=== PATIENT | female | born 1995 | race Caucasian/White ===

== ENCOUNTER 2019-12-28 14:33 | Emergency (ER) | payer OTHER ==
[~2019-12-28] VITALS: Ht 165.1 cm; Wt 68.0 kg
[~2019-12-28 14:33] MED LIST: CIPRO500 MG PO; CIPROFLOXACIN500 M1 PO; ELMIRON 100 MG100 M1 PO; HYDROCODON-ACE1 EAC7 PO; HYDROCODONE-AP1 EAC6 PO; IBUPROFEN 800800 M1 PO; IMITREX 25 MG T25 M1 PO; TRAMADOL 50 MG50 MG PO; TRINATE TABLET1 TAB PO; ZOLOFT25 MG PO
[2019-12-28 15:07] LABS: URINE BILIRUBIN NEGATIVE (Negative); URINE BLOOD 1+ (Negative); URINE CLARITY CLEAR; URINE COLOR YELLOW; URINE GLUCOSE-RANDOM NEGATIVE (Negative); URINE KETONES NEGATIVE (Negative); URINE LEUKOCYTES-REFLEX 1+ (Negative); URINE NITRITE-REFLEX POSITIVE (Negative); URINE PROTEIN NEGATIVE (Negative); URINE UROBILINOGEN 0.2 E.U./dl (0.2-1.0)
[2019-12-28 15:14] LABS: BACTERIA-REFLEX >30 Many /HPF (None Seen); SQUAMOUS 4-10 Moderate /LPF (0-3); URINE RBC 3-10 Few /HPF (0-2); URINE WBC-REFLEX >25 Many /HPF (0-5)
[2019-12-28 15:15] LABS: CASTS None Seen /LPF (None Seen); CRYSTALS None Seen /LPF (None Seen); MUCUS 4-6 Moderate strn/LPF (None Seen); WBC CLUMPS Moderate (None Seen)
[2019-12-28] MEDS ORDERED: NORCO 5-325 TA1 EAC2 PO (16:25)
[2019-12-28] MEDS ORDERED: KEFLEX500 M1 PO (16:25)
[2019-12-28] MEDS ORDERED: FLEXERIL PO (16:25)
[2019-12-28 16:36] VITALS: BP 137/85
== END 2019-12-28 16:38 | disposition home or self-care (01) ==
LOC: M.ERS 14:33
PROVIDERS: Nurse Practitioner Family
DX: M54.31 Sciatica, right side (principal); N39.0 Urinary tract infection, site not specified; K50.90 Crohn's disease, unspecified, without complications; Z88.5 Allergy status to narcotic agent; Z91.040 Latex allergy status; Z90.89 Acquired absence of other organs

== ENCOUNTER 2020-11-06 12:14 | Emergency (ER) | payer OTHER ==
[~2020-11-06] VITALS: Ht 170.2 cm; Wt 90.7 kg
--- NOTE | ~2020-11-06 | EMS ---
[address] [address] EMS Patient Care Report Name: ANN RUIZ [id number] Admission: 11/06/20 Attend Phys: Discharge: Date of : [birth year] Report #: [id number] THIS REPORT FOR: //name// Report Transmitted: 11/06/2020 12:07 EMS Care Summary [facility] Incident [id number] @ 11/06/2020 11:34 Incident Location [address] [place] [address] Patient ANN JULES Female, 25 Years 1995 Patient Address [address] [place] [address] Patient History None Reported, Patient Allergies Codeine, Patient Medications None Reported, Chief Complaint Lower Right Abdominal PAin Disposition Transported No Lights/[place] Dispatch Reason Abdominal Pain/Problems Transported To [facility] Narrative Med 1 & Utility 1 was dispatched for a [age] year old female c/o lower right sided abdominal pain that began two hours earlier. Upon arrival, patient met us at the door and she stepped out onto the front porch chair so we could assess her. Patient reports that the pain began two hours [place] [address] EMS Patient Care Report Name: ANN RUIZ Room: [facility]#: [id number] Admission: 11/06/20 Attend Phys: Discharge: Date of : [birth year] Report #: [id number] from sleeping. It is non radiating and is tender upon palpation. She began having nausea and vomiting about a half hour later. Patient states that her last menstrual cycle was three weeks ago and there is no chance that she could be . Patient's vitals were obtained. Patient was assisted to the stretcher and secured via seatbelts and patient was moved to the ambulance without incident. In the ambulance, patient was placed on the aircraft engine installer. It shown Normal Sinus Rhythm. Saline lock was established with a 20 GA IV catheter. Blood glucose was obtained with a result of 93mg/dL. Med 1 went enroute [address] [facility]. Patient rated her pain a 10/10 pain. Patient's vitals were monitored throughout transport. Hospital report was given via radio with no questions or orders received or requested. Med 1 arrived at the hospital . Patient was moved into the ER via stretcher without incident to room 5. Patient care was transferred to ER staff. Med 1 returned back into service. [id number] KShook Initial Vitals @11:52P: 72,R: 20,BP: 100/58,Pain: 10/10,GCS: 15,SpO2: 98,Revised Trauma: 12, @12:03P: 67,R: 18,BP: 104/70,Pain: 10/10,GCS: 15,Glucose: 93,SpO2: 98,Revised Trauma: 12, Assessments @11:40MENTAL:No Abnormalities,SKIN:No Abnormalities,HEENT:Head/Face: No Abnormalities,Eyes: No Abnormalities,Neck/Airway: No Abnormalities,LUNG SOUNDS:General: Vomiting,General: Nausea,Right Lower: Tenderness,Right Upper: No Abnormalities,Left Lower: No Abnormalities,ABDOMEN:General: Vomiting,General: Nausea,Right Lower: Tenderness,Right Upper: No Abnormalities,Left Lower: No Abnormalities,PELVIS//GI:EXTREMITIES:PULSE:NEURO: Impression Abdominal Pain Procedures @11:46Saline Lock 10cc (20 ga) Site: Hand-RightResponse: UnchangedSucceeded@11:47Ondansetron - 4 Milligrams (mg) - Intravenous (IV)Response: Improved Timeline 11:34,[place] [address] EMS Patient Care Report Name: JARED RUIZYOAV Tate Room: [facility]#: [id number] Admission: 11/06/20 Attend Phys: Discharge: Date of : [birth year] Report #: [id number] 11:34,Dispatched 11:35,En Route 11:36,On Scene 11:37,At Patient 11:46,Saline Lock 10cc 20 ga Site: Hand-Right,Response: UnchangedSucceeded, 11:47,Ondansetron - 4 Milligrams (mg) - Intravenous (IV),Response: Improved 11:50,Depart Scene 11:52,BP: 100/58 M,PULSE: 72,RR: 20 R,SPO2: 98 Ox,ETCO2: ,BG: ,PAIN: 10,GCS: 15, 12:03,BP: 104/70 M,PULSE: 67,RR: 18 R,SPO2: 98 Ox,ETCO2: ,B,PAIN: 10,GCS: 15, 12:11,At Destination 12:43,Call Closed 12:43,In District Disclaimer v1.1 Copyright 2020 [employer] This EMS Care Summary contains data elements from the applicable legal record (which may be displayed differently). It is designed to provide pertinent information for the following purposes: continuity of care, clinical quality, and state data reporting. The complete legal record is available to ED staff and administrators of the receiving hospital in [employer] Patient Tracker. All data is provided "as is."
[~2020-11-06 12:14] MED LIST changes: +FLEXERIL PO; +KEFLEX500 M1 PO; +NORCO 5-325 TA1 EAC2 PO
[2020-11-06 12:47] LABS: ABSOLUTE BASOPHILS 0.1 thou/uL (0.0-0.2); ABSOLUTE EOSINOPHILS 0.3 thou/uL (0.0-0.7); ABSOLUTE LYMPHOCYTES 1.8 thou/uL (0.8-5.3); ABSOLUTE MONOCYTES 1.3 thou/uL (0.0-1.2); ABSOLUTE NEUTROPHILS 15.4 thou/uL (1.6-8.1); BASOPHILS 0.5 %; EOSINOPHILS 1.6 %; HEMATOCRIT 36.9 % (37.0-47.0); HEMOGLOBIN 12.2 gm/dL (12.0-15.0); LYMPHOCYTES 9.5 %; MCH 28.4 pg (26.0-34.0); MCHC 32.9 g/dL (28.0-37.0); MCV 86.3 fL (80.0-100.0); MONOCYTES 6.7 %; MPV 7.9 fl. (7.2-11.1); NUCLEATED RBCS 0 /100WBC; PLATELET COUNT* 310 thou/uL (150-400); POLYS 81.7 %; RBC 4.28 mil/uL (4.20-5.00); RDW-CV 15.5 % (10.5-14.5); WBC 18.9 thou/uL (4.0-11.0)
[2020-11-06 12:56] LABS: CALCIUM 8.2 mg/dL (8.5-10.1); CREATININE 0.9 mg/dL (0.6-1.3)
[2020-11-06 13:00] LABS: ALBUMIN 3.6 g/dL (3.4-5.0); TOTAL BILIRUBIN 0.3 mg/dL (<0.1-1.0); TOTAL PROTEIN 6.9 g/dL (6.4-8.2)
[2020-11-06 13:46] LABS: URINE BILIRUBIN NEGATIVE (Negative); URINE BLOOD NEGATIVE (Negative); URINE CLARITY CLEAR; URINE COLOR YELLOW; URINE GLUCOSE-RANDOM NEGATIVE (Negative); URINE KETONES NEGATIVE (Negative); URINE LEUKOCYTES-REFLEX NEGATIVE (Negative); URINE NITRITE-REFLEX NEGATIVE (Negative); URINE PROTEIN NEGATIVE (Negative); URINE UROBILINOGEN 0.2 E.U./dl (0.2-1.0)
[2020-11-06] MEDS ORDERED: BENTYL 10 MG CA10 M1 PO (14:34)
[2020-11-06] MEDS ORDERED: NAPROSYN500 MG PO (14:34)
[2020-11-06] MEDS ORDERED: ZOFRAN ODT4 MG PO (14:34)
[2020-11-06 14:46] VITALS: BP 112/55
== END 2020-11-06 14:47 | disposition home or self-care (01) ==
LOC: M.ERS 12:14
PROVIDERS: Nurse Practitioner Family
DX: N83.201 Unspecified ovarian cyst, right side (principal); R11.2 Nausea with vomiting, unspecified; K50.90 Crohn's disease, unspecified, without complications; J45.909 Unspecified asthma, uncomplicated; Z91.040 Latex allergy status; Z88.5 Allergy status to narcotic agent; Z90.89 Acquired absence of other organs

== ENCOUNTER 2021-03-30 08:46 | Emergency (ER) | payer OTHER ==
[~2021-03-30] VITALS: Ht 170.2 cm; Wt 90.7 kg
--- NOTE | ~2021-03-30 | EMS ---
[address] [address] EMS Patient Care Report Name: ANN RUIZ [id number] Admission: 03/30/21 Attend Phys: Discharge: 03/30/21 Date of : [birth year] Report #: [id number] THIS REPORT FOR: //name// Report Transmitted: 03/30/2021 11:25 EMS Care Summary [facility] Incident [id number] @ 03/30/2021 08:06 Incident Location [address] Patient ANN RUIZ Female, 25 Years 1995 Patient Address [address] [place] [address] Patient History Hypoglycemia, Patient Allergies Codeine,Latex allergy, Patient Medications None Reported, Chief Complaint abdominal pain Disposition Transported No Lights/[place] Dispatch Reason Sick Person Transported To [facility] Narrative Med1 was dispatched for a 25 year old female conscious and breathing having abdominal pain. Med1 responds to the scene urgently. Arrival at the scene EMS personnel dismount the ambulance with the monitor and medical bag. Patient is located inside the police station lobby sitting down in a chair. Patient acknowledges EMS presence is GCS 15 and AAOX4. Patient has a patent airway is [address] [address] EMS Patient Care Report Name: ANN RUIZ Room: [facility]#: [id number] Admission: 03/30/21 Attend Phys: Discharge: 03/30/21 Date of : [birth year] Report #: [id number] breathing adequately with strong regular radial pulses. Skin is pink warm and dry. Patient denies any chest pain or SOB. Patient advises of abdominal pain Periumbilical radiating to both lower quadrants and described as a sharp stabbing pain rated at a 9 out of 10. Patient advises that the pain began this morning around 5am and woke her from her sleep. VS are obtained and patient agrees to transport to [facility]. Patient is assisted to the ambulance and placed on the stretcher in the fowlers position. Patient is secured using seatbelts and rails. Patient is placed on the monitor to obtain ECG and VS. IV access is established in the right antecubital region using a 20G and secured with a venigard. 10 ML NS is flushed. 4mg of Ondansetron is given for nausea and transport is initiated. Glucose check conducted and results are 94mg/dL. 12 lead ECG shows NSR. Assessment is conducted. Patient is GCS 15, AAOx4, Patient has a patent airway is breathing adequately with strong regular radial pulses. Skin is noted to be pale and clammy. 500ML NS is administered IV for hypotension. HEENT are WNL. Pupils are PERRL. Trachea is midline with no JVD noted. Chest wall is stable and intact with symmetrical rise and fall. Lung sounds are clear and equal bilaterally. Abdomen is noted to have tenderness and pain periumbilical radiating to both lower quadrants. Pelvis is stable and intact with CMSX4 present. Arrival at the receiving facility patient is offloaded and taken to ED room 9. RN is given report and transfer of care is completed. Signatures are obtained and Med 1 returns to service. Initial Vitals @08:41P: 104,R: 18,BP: 94/70,Pain: 8/10,GCS: 15,SpO2: 98,Revised Trauma: 12, @08:31P: 92,R: 20,Pain: 8/10,GCS: 15,SpO2: 99,GA Suspected: false @08:13P: 113,R: 22,Pain: 9/10,GCS: 15,SpO2: 99,GA Suspected: false @08:13P: 110,R: 18,BP: 126/76,Pain: 9/10,GCS: 15,SpO2: 99,Revised Trauma: 12, @08:33P: 91,R: 19,BP: 103/69,Pain: 8/10,GCS: 15,SpO2: 99,Revised Trauma: 12, @08:23P: 103,BP: 113/71,GCS: 15,Glucose: 93,SpO2: 98, Impression Abdominal Pain Procedures @08:15 ALS Assessment Response: UnchangedSucceeded @08:25 IV Therapy - Saline Lock 10cc (20 ga) Site: Antecubital-Left Response: UnchangedSucceeded @08:30 Ondansetron - 4 Milligrams (mg) - Intramuscular (IM) Response: Improved @08:35 IV Bolus - Normal Saline (.9% NaCl) 500cc (20 ga) Site: Antecubital-Right Response: UnchangedSucceeded @08:31 12-Lead ECG Response: [place] [address] EMS Patient Care Report Name: ANN RUIZ Room: [facility]#: [id number] Admission: 03/30/21 Attend Phys: Discharge: 03/30/21 Date of : [birth year] Report #: [id number] Timeline 08:06,Call Received 08:06,Dispatched 08:09,En Route 08:10,Initial Responder On Scene 08:10,On Scene 08:11,At Patient 08:13,BP: 126/76 M,PULSE: 110,RR: 18 R,SPO2: 99 Ox,ETCO2: ,BG: ,PAIN: 9,GCS: 15, 08:13,BP: / M,PULSE: 113,RR: 22 R,SPO2: 99 Ox,ETCO2: ,BG: ,PAIN: 9,GCS: 15, 08:15,ALS Assessment,Response: UnchangedSucceeded, 08:22,Depart Scene 08:23,BP: 113/71 M,PULSE: 103,RR: R,SPO2: 98 Ox,ETCO2: ,B,PAIN: ,GCS: 15, 08:25,IV Therapy - Saline Lock 10cc 20 ga Site: Antecubital-Left,Response: UnchangedSucceeded, 08:30,Ondansetron - 4 Milligrams (mg) - Intramuscular (IM),Response: Improved 08:31,12-Lead ECG,Response: UnchangedSucceeded, 08:31,BP: / M,PULSE: 92,RR: 20 R,SPO2: 99 Ox,ETCO2: ,BG: ,PAIN: 8,GCS: 15, 08:33,BP: 103/69 M,PULSE: 91,RR: 19 R,SPO2: 99 Ox,ETCO2: ,BG: ,PAIN: 8,GCS: 15, 08:35,IV Bolus - Normal Saline (.9% NaCl) 500cc 20 ga Site: Antecubital-Right,Response: UnchangedSucceeded, 08:41,At Destination 08:41,BP: 94/70 M,PULSE: 104,RR: 18 R,SPO2: 98 Ox,ETCO2: ,BG: ,PAIN: 8,GCS: 15, 08:43,Transfer Patient 09:29,Call Closed 09:29,In District Disclaimer v1.1 Copyright 2020 [employer] This EMS Care Summary contains data elements from the applicable legal record (which may be displayed differently). It is designed to provide pertinent information for the following purposes: continuity of care, clinical quality, and state data reporting. The complete legal record is available to ED staff and administrators of the receiving hospital in [employer] Patient Tracker. All data is provided "as is."
[~2021-03-30 08:46] MED LIST changes: +BENTYL 10 MG CA10 M1 PO; +NAPROSYN500 MG PO; +ZOFRAN ODT4 MG PO
[2021-03-30] MEDS ORDERED: BIRTH CONTROL (08:50)
[2021-03-30 09:10] LABS: ABSOLUTE BASOPHILS 0.1 thou/uL (0.0-0.2); ABSOLUTE EOSINOPHILS 0.2 thou/uL (0.0-0.7); ABSOLUTE LYMPHOCYTES 1.8 thou/uL (0.8-5.3); ABSOLUTE MONOCYTES 0.6 thou/uL (0.0-1.2); ABSOLUTE NEUTROPHILS 9.9 thou/uL (1.6-8.1); BASOPHILS 0.5 %; EOSINOPHILS 1.8 %; HEMATOCRIT 38.8 % (37.0-47.0); HEMOGLOBIN 12.4 gm/dL (12.0-15.0); LYMPHOCYTES 14.4 %; MCH 28.2 pg (26.0-34.0); MCHC 32.1 g/dL (28.0-37.0); MCV 87.8 fL (80.0-100.0); MONOCYTES 4.6 %; MPV 8.7 fl. (7.2-11.1); NUCLEATED RBCS 0 /100WBC; PLATELET COUNT* 197 thou/uL (150-400); POLYS 78.7 %; RBC 4.41 mil/uL (4.20-5.00); RDW-CV 15.3 % (10.5-14.5); WBC 12.5 thou/uL (4.0-11.0)
[2021-03-30 09:19] LABS: CALCIUM 7.9 mg/dL (8.5-10.1); CREATININE 0.8 mg/dL (0.6-1.3); POTASSIUM 3.8 mmol/L (3.5-5.1)
[2021-03-30 09:23] LABS: ALBUMIN 3.2 g/dL (3.4-5.0); TOTAL BILIRUBIN 0.1 mg/dL (<0.1-1.0); TOTAL PROTEIN 6.5 g/dL (6.4-8.2)
[2021-03-30 11:16] LABS: URINE BILIRUBIN NEGATIVE (Negative); URINE BLOOD NEGATIVE (Negative); URINE CLARITY CLEAR; URINE COLOR YELLOW; URINE GLUCOSE-RANDOM NEGATIVE (Negative); URINE KETONES NEGATIVE (Negative); URINE LEUKOCYTES-REFLEX NEGATIVE (Negative); URINE NITRITE-REFLEX NEGATIVE (Negative); URINE PROTEIN NEGATIVE (Negative); URINE SPECIFIC GRAVITY <= 1.005 (1.005-1.030); URINE UROBILINOGEN 0.2 E.U./dl (0.2-1.0)
[2021-03-30] MEDS ORDERED: HYDROCODON-ACE1 EAC7 PO (11:24)
[2021-03-30] MEDS ORDERED: ZOFRAN ODT4 MG DISSOLVE (11:24)
[2021-03-30 11:37] VITALS: BP 110/50
== END 2021-03-30 11:37 | disposition home or self-care (01) ==
LOC: M.ERS 08:46
PROVIDERS: Emergency Medicine Emergency Medical Services
DX: R10.31 Right lower quadrant pain (principal); R10.32 Left lower quadrant pain; J45.909 Unspecified asthma, uncomplicated; Z90.89 Acquired absence of other organs; Z88.5 Allergy status to narcotic agent; Z91.040 Latex allergy status